=== PATIENT | female | born 1950 | race Caucasian/White ===

== ENCOUNTER 2016-12-27 09:25 | Outpatient (CLI) | payer MEDICARE, OTHER ==
[2016-12-27 12:46] LABS: #Basophils 0.1 thou/uL (0.0-0.2); #Eosinphils 0.2 thou/uL (0.0-0.7); #Lymphocytes 1.7 thou/uL (1.20-3.40); #Monocytes 0.7 thou/uL (0.11-0.59); #Neutrophils 3.3 thou/uL (1.40-6.50); %Basophils 2.2 % (0.0-1.0); %Lymphocytes 28.2 % (21.0-51.0); %Monocytes 11.6 % (0.0-10.0); %Neutrophils 55.1 % (42.0-75.0); Hemoglobin 11.9 g/dL (12.0-16.0); Mean Corpuscular HGB CONC 33.5 g/dL (32.0-36.0); Mean Corpuscular Hemoglobin 32.5 pg (27.0-31.0); Mean Platelet Volume 10.5 fL (7.4-10.4); Platelet Count 184 thou/uL (130-400); RBC Distribution Width 11.9 % (11.5-14.5); Red Blood Cell (RBC) Count 3.68 mill/uL (4.20-5.40); White Blood Cell (WBC) Count 6.1 thou/uL (4.8-10.8)
[2016-12-27 13:21] LABS: ALT (SGPT) 31 U/L (8-55); AST (SGOT) 32 U/L (5-34); Albumin 3.7 g/dL (3.4-4.8); Alkaline Phosphatase 117 U/L (40-150); Anion Gap 17 mmol/L (10-20); BUN (Urea Nitrogen) 23 mg/dL (9.8-20.1); Bilirubin, Direct 0.2 mg/dL (0.1-0.3); Bilirubin, Total 0.4 mg/dL (0.2-1.2); Calc. Creatinine Clearance 0 mL/min (70-130); Calcium 9.6 mg/dL (7.8-10.44); Carbon Dioxide 21 mmol/L (23-31); Cardiac Risk 3.1 (Less than 4.5); Chloride 108 mmol/L (98-107); Cholesterol 197 mg/dl (< 200 Desired); Estimated GFR-MDRD 57; Glucose 80 mg/dL (80-115); HDL Cholesterol 63 mg/dL (>60 Neg Risk); LDL Cholesterol, Calculated 116 mg/dL; Potassium 4.7 mmol/L (3.5-5.1); Protein, Total 6.8 g/dL (6.0-8.3); Sodium 141 mmol/L (136-145); Triglycerides 88 mg/dL (Less than 150)
== END 2016-12-27 09:26 ==
LOC: NAVSJIPCSP 09:25
PROVIDERS: ATTEND Family Medicine
DX: K74.3 Primary biliary cirrhosis (principal); G47.00 Insomnia, unspecified; R25.2 Cramp and spasm; Z79.899 Other long term (current) drug therapy
CPT/HCPCS: 36415; 80048; 80061; 80076; 83036; 84443; 85025

== ENCOUNTER 2017-01-28 12:53 | Outpatient (CLI) | payer MEDICARE | END 2017-01-28 12:54 | disposition home or self-care (01) | LOC: NAV LAB 12:53 | PROVIDERS: ATTEND Family Medicine | DX: R19.7 Diarrhea, unspecified (principal) | CPT/HCPCS: 36415; 86674 ==

== ENCOUNTER 2017-01-29 09:37 | Outpatient (CLI) | payer MEDICARE | END 2017-01-29 09:38 | disposition home or self-care (01) | LOC: NAV LABSP 09:37 | PROVIDERS: ATTEND Family Medicine | DX: R19.7 Diarrhea, unspecified (principal) | CPT/HCPCS: 82274; 83630; 87015; 87045; 87046; 87081; 87177; 87324; 87449; 87899 ==

== ENCOUNTER 2017-05-02 09:31 | Outpatient (CLI) | payer MEDICARE ==
[2017-05-02 12:47] LABS: #Basophils 0.1 thou/uL (0.0-0.2); #Eosinphils 0.2 thou/uL (0.0-0.7); #Monocytes 0.7 thou/uL (0.11-0.59); #Neutrophils 3.1 thou/uL (1.40-6.50); %Basophils 1.9 % (0.0-1.0); %Eosinophils 3.9 % (0.0-10.0); %Lymphocytes 31.8 % (21.0-51.0); %Monocytes 11.6 % (0.0-10.0); %Neutrophils 50.8 % (42.0-75.0); Hemoglobin 12.3 g/dL (12.0-16.0); Mean Corpuscular HGB CONC 33.3 g/dL (32.0-36.0); Mean Corpuscular Hemoglobin 32.2 pg (27.0-31.0); Mean Corpuscular Volume 96.9 fl (81.0-99.0); Mean Platelet Volume 10.3 fL (7.4-10.4); Platelet Count 189 thou/uL (130-400); RBC Distribution Width 11.4 % (11.5-14.5); Red Blood Cell (RBC) Count 3.83 mill/uL (4.20-5.40); White Blood Cell (WBC) Count 6.1 thou/uL (4.8-10.8)
[2017-05-02 12:51] LABS: ALT (SGPT) 30 U/L (8-55); AST (SGOT) 31 U/L (5-34); Albumin 3.8 g/dL (3.4-4.8); Alkaline Phosphatase 105 U/L (40-150); Anion Gap 15 mmol/L (10-20); BUN (Urea Nitrogen) 26 mg/dL (9.8-20.1); Bilirubin, Direct 0.2 mg/dL (0.1-0.3); Bilirubin, Total 0.5 mg/dL (0.2-1.2); Calc. Creatinine Clearance 0 mL/min (70-130); Calcium 9.3 mg/dL (7.8-10.44); Carbon Dioxide 22 mmol/L (23-31); Cardiac Risk 3.2 (Less than 4.5); Chloride 106 mmol/L (98-107); Cholesterol 183 mg/dl (< 200 Desired); Estimated GFR-MDRD 52; Glucose 84 mg/dL (80-115); HDL Cholesterol 58 mg/dL (>60 Neg Risk); LDL Cholesterol, Calculated 106 mg/dL; Potassium 4.6 mmol/L (3.5-5.1); Protein, Total 6.9 g/dL (6.0-8.3); Sodium 138 mmol/L (136-145); Triglycerides 97 mg/dL (Less than 150)
[2017-05-02 13:43] LABS: Hemoglobin A1c 5.1 % (4.0-6.0)
== END 2017-05-02 09:32 | disposition home or self-care (01) ==
LOC: NAVSJIPCSP 09:31
PROVIDERS: ATTEND Family Medicine
DX: G47.00 Insomnia, unspecified (principal); K74.3 Primary biliary cirrhosis; K21.9 Gastro-esophageal reflux disease without esophagitis; M19.90 Unspecified osteoarthritis, unspecified site; G25.81 Restless legs syndrome; R25.2 Cramp and spasm; Z79.899 Other long term (current) drug therapy
CPT/HCPCS: 36415; 80048; 80061; 80076; 83036; 84443; 85025

== ENCOUNTER 2017-06-29 07:50 | Emergency (ER) | payer MEDICARE ==
--- NOTE | 2017-06-29 10:02 | RAD ---
2 VIEWS CHEST: Date: 06/29/17 PROVIDED CLINICAL HISTORY: Cough. FINDINGS: Cardiac and mediastinal silhouette is within normal limits. Lungs are clear. No pleural fluid or pneu mothorax apparent. IMPRESSION: No evidence for an acute cardiopulmonary process. POS: [facility]
== END 2017-06-29 09:03 | disposition home or self-care (01) ==
LOC: NAV ERS 07:50
DX: J20.9 Acute bronchitis, unspecified (principal); Z87.891 Personal history of nicotine dependence; Z79.899 Other long term (current) drug therapy
CPT/HCPCS: 71020

== ENCOUNTER 2021-09-04 11:18 | Emergency (ER) | payer MEDICARE ==
[2021-09-04 12:11] LABS: #Basophils 0.1 thou/uL (0.0-0.2); #Eosinphils 0.2 thou/uL (0.0-0.7); #Lymphocytes 1.8 thou/uL (1.20-3.40); #Monocytes 0.6 thou/uL (0.11-0.59); #Neutrophils 3.7 thou/uL (1.40-6.50); %Basophils 1.8 % (0.0-1.0); %Eosinophils 3.1 % (0.0-10.0); %Lymphocytes 28.1 % (21.0-51.0); %Monocytes 9.7 % (0.0-10.0); %Neutrophils 57.2 % (42.0-75.0); Hemoglobin 12.4 g/dL (12.0-16.0); Mean Corpuscular HGB CONC 33.3 g/dL (32.0-36.0); Mean Corpuscular Hemoglobin 33.3 pg (27.0-31.0); Mean Corpuscular Volume 99.8 fL (78.0-98.0); Mean Platelet Volume 12.7 fL (7.4-10.4); Platelet Count 156 thou/uL (130-400); RBC Distribution Width 10.9 % (11.5-14.5); Red Blood Cell (RBC) Count 3.72 mill/uL (4.20-5.40); White Blood Cell (WBC) Count 6.5 thou/uL (4.8-10.8)
[2021-09-04 12:14] LABS: ALT (SGPT) 19 U/L (8-55); AST (SGOT) 22 U/L (5-34); Albumin 3.6 g/dL (3.4-4.8); Alkaline Phosphatase 120 U/L (40-110); Anion Gap 12 mmol/L (10-20); BUN (Urea Nitrogen) 18 mg/dL (9.8-20.1); Bilirubin, Total 0.5 mg/dL (0.2-1.2); Calc. Creatinine Clearance 0 mL/min (70-130); Calcium 9.1 mg/dL (7.8-10.44); Carbon Dioxide 25 mmol/L (23-31); Chloride 105 mmol/L (98-107); Globulin 3.3 g/dL (2.4-3.5); Glucose 112 mg/dL (83-110); Magnesium 1.6 mg/dL (1.6-2.6); Protein, Total 6.9 g/dL (5.8-8.1); Sodium 138 mmol/L (136-145)
== END 2021-09-04 13:03 | disposition home or self-care (01) ==
LOC: NAV ERS 11:18
DX: R03.0 Elevated blood-pressure reading, without diagnosis of hypertension (principal); Z87.891 Personal history of nicotine dependence; Z79.899 Other long term (current) drug therapy
CPT/HCPCS: 80053; 83735; 84484; 85025; 93005; 94760

== ENCOUNTER 2021-10-19 10:26 | Outpatient (CLI) | payer MEDICARE | END 2021-10-19 10:27 | disposition home or self-care (01) | LOC: NAV RAD 10:26 | PROVIDERS: ATTEND Family Medicine | DX: M70.62 Trochanteric bursitis, left hip (principal) ==

== ENCOUNTER 2021-11-01 13:49 | Outpatient (CLI) | payer MEDICARE | END 2021-11-01 13:50 | disposition home or self-care (01) | LOC: NAV RAD 13:49 | PROVIDERS: ATTEND Family Medicine | DX: M25.552 Pain in left hip (principal); W19.XXXA Unspecified fall, initial encounter ==

== ENCOUNTER 2022-06-10 16:31 | Emergency (ER) | payer MEDICARE, OTHER ==
[2022-06-10] MEDS ORDERED: Acetaminophen/Codeine 30-300mg Tablet ONE (17:15)
[2022-06-10 17:42] LABS: PTT 27.5 sec (22.9-36.1)
[2022-06-10 17:45] LABS: ALT (SGPT) 16 U/L (8-55); AST (SGOT) 22 U/L (5-34); Albumin 3.7 g/dL (3.4-4.8); Alkaline Phosphatase 97 U/L (40-110); Anion Gap 14 mmol/L (10-20); BUN (Urea Nitrogen) 16 mg/dL (9.8-20.1); Bilirubin, Total 0.4 mg/dL (0.2-1.2); Calc. Creatinine Clearance 0 mL/min (70-130); Carbon Dioxide 26 mmol/L (23-31); Chloride 102 mmol/L (98-107); Estimated GFR 55; Globulin 2.6 g/dL (2.4-3.5); Glucose 148 mg/dL (83-110); Potassium 3.7 mmol/L (3.5-5.1); Protein, Total 6.3 g/dL (5.8-8.1); Sodium 138 mmol/L (136-145)
[2022-06-10 17:47] LABS: #Basophils 0.1 thou/uL (0.0-0.2); #Eosinphils 0.1 thou/uL (0.0-0.7); #Lymphocytes 1.9 thou/uL (1.20-3.40); #Monocytes 0.8 thou/uL (0.11-0.59); #Neutrophils 2.9 thou/uL (1.40-6.50); %Basophils 2.3 % (0.0-1.0); %Eosinophils 2.2 % (0.0-10.0); %Lymphocytes 32.2 % (21.0-51.0); %Monocytes 13.6 % (0.0-10.0); %Neutrophils 49.8 % (42.0-75.0); Hemoglobin 12.9 g/dL (12.0-16.0); Mean Corpuscular HGB CONC 34.6 g/dL (32.0-36.0); Mean Corpuscular Hemoglobin 33.7 pg (27.0-31.0); Mean Corpuscular Volume 97.7 fl (78.0-98.0); Mean Platelet Volume 12.8 fL (7.4-10.4); Platelet Count 162 thou/uL (130-400); RBC Distribution Width 11.2 % (11.5-14.5); Red Blood Cell (RBC) Count 3.82 mill/uL (4.20-5.40); White Blood Cell (WBC) Count 5.8 thou/uL (4.8-10.8)
[2022-06-10] MEDS ORDERED: Sodium Chloride 0.9% 1,000 ML ONE (17:50)
[2022-06-10] MEDS ORDERED: Morphine 4 MG/ML VIAL ONE ×2 (17:50→21:54)
[2022-06-10] MEDS ORDERED: Boostrix 0.5 ML (Tdap) VIAL (>/=7 yrs of age) ONE (18:02)
[2022-06-10 18:17] LABS: Large Platelets SLIGHT; MDiff Complete? YES; Platelet Morphology Comment Appears Adequate; RBC Morphology Normal
[2022-06-10 19:38] LABS: Bilirubin Negative (Negative); Blood, Urine Negative (Negative); Clarity Clear (Clear); Glucose, Urine (Dipstick) Negative (Negative); Ketone, Urine Negative (Negative); Leukocyte Negative (Negative); Nitrite Negative (Negative); Protein, Urine (Dipstick) Negative (Neg-Trace); Specific Gravity, Urine 1.008 (1.002-1.036); Urobilinogen 0.2 mg/dL (Less than 2); pH, Urine 5.5 (5.0-9.0)
[2022-06-10] MEDS ORDERED: ANTIVENIN,CROTALIDAE (ANAVIP) 1 EACH VIAL ONE ×2 (20:09→20:13)
== END 2022-06-10 22:10 | disposition short-term general hospital (02) ==
LOC: NAV ERS 16:31
DX: S61.250A Open bite of right index finger without damage to nail, initial encounter (principal); Z87.891 Personal history of nicotine dependence; W59.11XA Bitten by nonvenomous snake, initial encounter
CPT/HCPCS: 80053; 81003; 85025; 85610; 85730; 86850; 86900; 86901; 90471; 90715; 93005; 96365; 96375; 96376; 99284; J0476; 36415; 85384; J2270; J7050